=== PATIENT | male | born 1950 | race Caucasian/White ===

== ENCOUNTER 2019-11-25 16:00 | Outpatient (RCR) | payer MEDICARE, OTHER, SELFPAY ==
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
== END 2019-11-25 16:05 | disposition home or self-care (01) ==
LOC: PT 16:00
PROVIDERS: Visit Provider Family Medicine
DX: R42 Dizziness and giddiness (principal)
CPT/HCPCS: 97110; 97163; 97535

== ENCOUNTER → 2020-02-23 10:51 | Outpatient (CLI) | payer MEDICARE, OTHER, SELFPAY ==
[2020-02-23 11:07] LABS: Basophils % 0.3 % (0.1-2.0); Eosinophils # 0.2 K/mm3 (0.0-0.4); Eosinophils % 2.3 % (0.1-12.0); Hemoglobin 14.9 g/dL (14.1-18.0); Lymphocytes # 1.8 K/mm3 (0.7-4.5); Lymphocytes % 25.5 % (10-50); Mean Corpuscular HGB Conc 34.6 g/dL (31.8-35.4); Mean Corpuscular Hemoglobin 33.2 pg (27.0-31.2); Mean Platelet Volume 9.2 fl (7.4-10.4); Monocytes # 0.4 K/mm3 (0.1-1.0); Monocytes % 5.7 % (1.7-9.3); Neutrophils # 4.6 K/mm3 (1.8-7.8); Neutrophils % 66.2 % (37.0-80.0); Platelet Count 187 K/mm3 (142-424); Red Blood Count 4.48 M/mm3 (4.60-6.20); Red Cell Distribution Width 14.5 % (11.5-17.5)
--- NOTE | 2020-02-23 11:13 | ECG_ITS ---
APPROVED REPORT Exam: Resting ECG HR:53 bpm ECG Measurements Heart Rate 53 AXES IA 168 P 53 QRSd 86 QRS 59 QT 450 T 48 QTc 422 <Conclusion> Sinus bradycardia with marked sinus arrhythmia Nonspecific ST abnormality Abnormal ECG Electronically signed by : Lewis Horvath, 02/25/2020 06:38:05
[2020-02-23 11:26] LABS: Alanine Aminotransferase 33 U/L (12-78); Albumin/Globulin Ratio 1.3 (1.1-1.8); Alkaline Phosphatase 131 U/L (38-126); Anion Gap 12.4 mEq/L (5-15); Aspartate Amino Transferase 41 U/L (17-59); Bilirubin,Total 0.7 mg/dl (0.2-1.3); Blood Urea Nitrogen 24 mg/dl (9-20); Calcium 9.3 mg/dl (8.4-10.2); Carbon Dioxide 30 mmol/L (22.0-30.0); Chloride 106 mmol/L (98-107); Creatine Kinase 101 U/L (55-170); Estimated Glomerular Filt Rate 51 ml/min (>60); GFR (African American) 61 ML/MIN (>60); Glucose 120 mg/dl (74-100); Potassium 4.4 mmoL/L (3.5-5.1); Sodium 144 mmol/L (136-145)
[2020-02-23 11:40] LABS: NT Pro Brain Natriuretic Pep. 709 pg/mL (0-125)
[2020-02-23 11:41] LABS: Troponin I < 0.01 ng/ml (0.00-0.034)
[2020-02-23 11:58] LABS: Thyroid Stimulating Hormone 1.43 uIU/mL (0.465-4.68)
[2020-02-23 12:16] LABS: Vitamin B12 389 pg/mL (239-931)
== END ==
PROVIDERS: Visit Provider Physician Assistant
DX: R07.9 Chest pain, unspecified (principal); R42 Dizziness and giddiness; R53.83 Other fatigue; R06.02 Shortness of breath
CPT/HCPCS: 36415; 80053; 82550; 82553; 82607; 83880; 84443; 84484; 85025; 93005

== ENCOUNTER → 2020-02-29 12:06 | Outpatient (CLI) | payer MEDICARE, OTHER, SELFPAY ==
--- NOTE | 2020-02-29 | CA_ITS ---
APPROVED REPORT Exam: Pharmacologic Technologist: Monica Bee, Ht: 5 ft 9 in Wt: 260 lbs BSA: 2.31 m2 HR: 59 bpm BP: 138/79 mmHg Indications: SOB, Chest Pain, Blood pressure Medical History Medications: Omeprazole,,,,, Losartan,,,,, Montelukast,,,,, Meclazine,,,,, FluTICASONE,,,,, MeLATONIN,,,,, Vitamin,,,,, MetaPROLOL,,,,, AZelastin,,,,, AtrovASTATIN,,,,, Asprin,,,,, ArNuity,,,,, Stress Test Details Test: LEXISCAN HR Resting HR: 55 bpm Max Heart Rate (APMHR): 153 bpm Max HR Achieved: 85 bpm Target HR (85% APMHR): 130 bpm % of APMHR: 55 Recovery HR: 74 bpm BP Resting BP: 138/79 mmHg Max BP: 162/75 mmHg Recovery BP: 148.0/83.0 mmHg ECG Clinical Exercise duration: 04:00 min Highest Stage Achieved: Exercise capacity: 1.0 METs Stress ECG Conclusion Resting EKG: Sinus bradycardia, PVC's, NS ST abns Symptoms: Mild SOA, stomach cramps, RENEE, malaise, No CP Arrhythmias/Ectopy: Moderately frequent PVC's ST-T Changes: No significant changes Conclusions: Unremarkale Lexiscan stress. Myoview images reported separately. Test Summary REST . . . . . . . Sitting REST 04:23 . . 55 . 138/ 79 . . Stage 1 01:00 . . 68 . . . . Stage 2 01:00 . . 84 . . . . Stage 3 01:00 . . 78 . 155/ 71 . . Stage 4 01:00 . . 75 . 162/ 75 . Stop exercise at 04:00 RECOVERY 01:00 . . 76 . 141/ 75 . . RECOVERY 02:00 . . 70 . 135/ 68 . . RECOVERY 03:00 . . 73 . 148/ 83 . . RECOVERY 03:38 . . 73 . 148/ 83 . . Electronically signed by : Alexander Light, 02/29/2020 18:35:18
--- NOTE | 2020-02-29 12:12 | NM_ITS ---
APPROVED REPORT Exam: Nuclear Stress Test Indication: SOB, CAD, CABG, HTN, Former tobacco use, Family history, Fatigue, Dizziness Patient Location: Outpatient Stress Tech: Anna Tejeda [place] Tech:Manju Real, ARRT, RT (R)(N) Ht: 5 ft 9 in Wt: 260 lbs HR: 59 bpm BP: 138/79 mmHg BSA: 2.31 m2 BMI: 38.3 History: SOB, CAD, CABG, HTN, Former tobacco use, Family history, Fatigue, Dizziness Procedure: Patient received a 0.4 mg of intravenous Lexiscan, resting heart rate 59 bpm, resting blood pressure 138/79 mmHg, with Lexiscan maximum heart rate achived was 84 bpm which is Less than 85 % of the maximum predicted heart rate and blood pressure was 155/71 mmHg. With Lexiscan, patient denied any complaint of chest pain. Electrocardiogram Resting electrocardiogram showed sinus rhythm, with Lexiscan there is less than 1.[address] segment depression noted from the baseline EKG, occasional premature ventricular complexes seen. The EKG portion of the Lexiscan Myoview is nondiagnostic. Cardiac Stress and Resting SPECT Images: Cardiac Stress and Resting SPECT images were obtained using technetium 99m Myoview 31.0 mCi stress and 9.78 mCi at rest. Gated SPECT for analysis of segmental wall motion and calculation of the ejection fraction also done. Cardiac stress and resting SPECT images show a mild fixed defect of the apex with normal contractility gated SPECT is likely secondary to soft tissue attenuation, no reversible ischemia seen. Computer derived ejection fraction is 53% with no regional wall motion abnormality, right ventricle is normal size and contractility. Conclusion: 1. The EKG portion of the Lexiscan Myoview is nondiagnostic. 2. No scintigraphic evidence of reversible ischemia seen, computer derived ejection fraction 53% with no regional wall motion abnormality, right ventricle is normal size and contractility. 3. Likely normal Lexiscan Myoview study. Electronically signed by : Alexander Light, 02/29/2020 18:37:57
--- NOTE | 2020-02-29 12:41 | HMH.ITSHM ---
Current Home Medications as stated by this patient Matthew Quesada or wholesale representative. []ARNUITY FLUTICASONE AZELASTINE MUCINEX OMEPRAZOLE ASA LOSARTAN FLUID PILL CENTRUM SILVER MELATONIN MONTELUKAST ATORVASTATIN METOPROLOL MECLIZINE
== END ==
PROVIDERS: PCP Family Medicine; Visit Provider Physician Assistant
DX: R07.9 Chest pain, unspecified (principal)
CPT/HCPCS: 78452; 93017; A9502; J2785

== ENCOUNTER 2020-03-18 13:47 | Emergency (ER) | payer MEDICARE, OTHER, SELFPAY ==
[2020-03-18 14:01] VITALS: BP 153/89; PULSE 56; RESP 17; TEMP 36.2; O2SAT 95; BMI 36.9
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
--- NOTE | 2020-03-18 14:06 | XR_ITS ---
PROCEDURE: XR CHEST AP CLINICAL HISTORY: fall Posttraumatic pain COMPARISON: CR CXR CHEST(2 VIEWS-NOT PORTABLE) from 07/13/2012 FINDINGS: Interval median sternotomy/CABG with mild cardiomegaly. The lungs are clear without infiltrates, suspicious nodules, or pleural effusions. No acute bony abnormalities. IMPRESSION: No acute findings. Dictated by: Amol Price MD 03/18/2020 18:12 Amol Price MD in [facility] 03/18/2020 18:12
--- NOTE | 2020-03-18 14:06 | XR_ITS ---
PROCEDURE: XR PELVIS 1-2V CLINICAL INDICATION: fall Posttraumatic pain COMPARISON: No exams were available for comparison TECHNIQUE: XR Pelvis AP View FINDINGS: No fracture or dislocation is evident. Mild osteoarthritic change of the hips No lytic or blastic change. IMPRESSION: No acute findings. Dictated by: Amol Price MD 03/18/2020 17:40 Amol Price MD in [facility] 03/18/2020 17:40
--- NOTE | 2020-03-18 14:06 | CT_ITS ---
PROCEDURE: CT HEAD/BRAIN WO CON CLINICAL INDICATION: fall Head injury with headache/pain, contusion, abrasion or hematoma COMPARISON: No exams were available for comparison TECHNIQUE: Axial images obtained. All CT scans at the facility use one or more dose reduction, viz: automated exposure control, ma/kV adjustment per patient size (including targeted exams where dose is matched to indication, i.e. head), or iterative reconstruction technique. FINDINGS: No midline shift, mass effect, intracranial hemorrhage, hydrocephalus, or extra-axial fluid collection is evident. The calvarium has an unremarkable appearance. No mastoid effusion. No sinus air-fluid level. IMPRESSION: No acute intracranial finding Dictated by: Amol Price MD 03/18/2020 20:12 Amol Price MD in [facility] 03/18/2020 20:12
--- NOTE | 2020-03-18 14:06 | CT_ITS ---
PROCEDURE: CT CERVICAL SPINE WO CON CLINICAL INDICATION: fall Neck injury with pain, contusion/abrasion or hematoma, cervical sprain/strain the COMPARISON: No exams were available for comparison TECHNIQUE: Axial images obtained with sagittal and coronal reformats. All CT scans at the facility use one or more dose reduction, viz: automated exposure control, ma/kV adjustment per patient size (including targeted exams where dose is matched to indication, i.e. head), or iterative reconstruction technique. Axial spiral CT scanning performed of the cervical spine beginning at the base of the skull and continuing to the upper T-spine. 3-D multiplanar reconstruction with 3-D manipulation of volumetric data set in image rendering was completed by the radiologist and/or technologist with the supervision of the radiologist on independent workstation. FINDINGS: Normal alignment. No fracture or dislocation. There is mild degenerative disc disease C2-C3. C3-C4: Degenerative disc disease with small posterior disc osteophyte complex. C4-C5: Mild degenerative disc disease. C5-C6: Degenerate disc disease with endplate hypertrophic change with canal stenosis and left-sided foraminal narrowing. C6-C7: Degenerate disc disease with borderline canal stenosis. Mild bilateral foraminal narrowing slightly greater on the left. IMPRESSION: No acute fracture. Multilevel cervical spondylosis with canal stenosis Dictated by: Amol Price MD 03/18/2020 20:25 Amol Price MD in [facility] 03/18/2020 20:25
--- NOTE | 2020-03-18 14:07 | XR_ITS ---
PROCEDURE: XR SHOULDER LT MIN 2V CLINICAL INDICATION: fall Shoulder pain COMPARISON: No exams were available for comparison FINDINGS: Degenerative changes AC joint and glenohumeral joint. No acute fracture or dislocation. IMPRESSION: No acute finding Dictated by: Amol Price MD 03/18/2020 18:34 Amol Price MD in [facility] 03/18/2020 18:34
--- NOTE | 2020-03-18 14:07 | XR_ITS ---
PROCEDURE: XR KNEE LT 3V CLINICAL INDICATION: fall Posttraumatic pain COMPARISON: No exams were available for comparison FINDINGS: Surgical clips are present along the medial aspect of the knee. The joint spaces are well-preserved. No significant degenerative/arthritic changes. No erosive changes evident. Other findings:None. IMPRESSION: No acute findings. Dictated by: Amol Price MD 03/18/2020 18:35 Amol Price MD in [facility] 03/18/2020 18:35
--- NOTE | 2020-03-18 14:07 | XR_ITS ---
PROCEDURE: XR HAND RT MIN 3V CLINICAL INDICATION: fall Pain COMPARISON: CR HANDR3 HAND-RT 3 VIEWS from 02/15/2016 CR HANDL3 HAND-LT-3 VIEWS from 02/15/2016 FINDINGS: No fracture or dislocation. No lytic or blastic change. There is normal mineralization. The joint spaces are well-preserved. No significant degenerative/arthritic changes. No erosive changes evident. Other findings:None. IMPRESSION: No acute findings. Dictated by: Amol Price MD 03/18/2020 18:13 Amol Price MD in [facility] 03/18/2020 18:13
--- NOTE | 2020-03-18 14:07 | XR_ITS ---
PROCEDURE: XR KNEE RT 3V CLINICAL INDICATION: fall Posttraumatic pain COMPARISON: No exams were available for comparison FINDINGS: No acute fracture or dislocation. There is a small sclerotic focus in the the lateral femoral condyle region suggesting a bone island. The joint spaces are well-preserved. No significant degenerative/arthritic changes. No erosive changes evident. Other findings:None. IMPRESSION: No acute findings. Dictated by: Amol Price MD 03/18/2020 18:03 Amol Price MD in [facility] 03/18/2020 18:03
--- NOTE | 2020-03-18 14:07 | XR_ITS ---
PROCEDURE: XR HAND LT MIN 3V CLINICAL INDICATION: fall Posttraumatic pain COMPARISON: CR HANDR3 HAND-RT 3 VIEWS from 02/15/2016 CR HANDL3 HAND-LT-3 VIEWS from 02/15/2016 FINDINGS: No fracture or dislocation. There is ring artifact overlying the proximal phalanx of the 4th finger. There is an a small concave defect involving the proximal and radial aspect of the proximal phalanx of the 2nd finger unchanged. Other findings:None. IMPRESSION: No acute findings. Dictated by: Amol Price MD 03/18/2020 18:07 Amol Price MD in [facility] 03/18/2020 18:07
--- NOTE | 2020-03-18 14:07 | XR_ITS ---
PROCEDURE: XR SHOULDER RT MIN 2V CLINICAL INDICATION: fall Posttraumatic pain COMPARISON: No exams were available for comparison FINDINGS: No fracture or dislocation. No lytic or blastic change. There is normal mineralization. Mild osteoarthritic change of the glenohumeral joint Other findings:Scattered small densities in the humeral head which may be due to bone islands. IMPRESSION: No acute findings. Dictated by: Amol Price MD 03/18/2020 17:39 Amol Price MD in [facility] 03/18/2020 17:39
[2020-03-18 16:23] VITALS: BP 133/6; PULSE 86; RESP 17; TEMP 36.9; O2SAT 98
== END 2020-03-18 16:30 | disposition home or self-care (01) ==
PROVIDERS: Emergency Provider Emergency Medicine; PCP Family Medicine
DX: S46.912A Strain of unspecified muscle, fascia and tendon at shoulder and upper arm level, left arm, initial encounter (principal); S61.217A Laceration without foreign body of left little finger without damage to nail, initial encounter; V86.99XA Unspecified occupant of other special all-terrain or other off-road motor vehicle injured in nontraffic accident, initial encounter; Y92.89 Other specified places as the place of occurrence of the external cause; Z23 Encounter for immunization; S80.02XA Contusion of left knee, initial encounter; S80.01XA Contusion of right knee, initial encounter; S80.12XA Contusion of left lower leg, initial encounter; S80.11XA Contusion of right lower leg, initial encounter
CPT/HCPCS: 12001; 70450; 71045; 72125; 72170; 73030; 73130; 73562; 90471; 90715; 99282

== ENCOUNTER → 2020-11-06 09:59 | Outpatient (CLI) | payer MEDICARE, OTHER, SELFPAY ==
--- NOTE | 2020-11-06 10:05 | XR_ITS ---
PROCEDURE: XR FOOT RT MIN 3V CLINICAL INDICATION: PLANTAR FASCITIS OF RT FOOT COMPARISON: CR FTR3 FOOT-RT-3 VIEWS from 02/15/2016 FINDINGS: No fracture or dislocation. No lytic or blastic change. There is normal mineralization. There are mild osteoarthritic changes at the 1st metatarsophalangeal joint. Tiny calcaneal spur noted unchanged. Small area of exostosis also noted involving the talus anteriorly and distally. Other findings:None. 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
== END ==
PROVIDERS: PCP Family Medicine; Visit Provider Family Medicine
DX: M72.2 Plantar fascial fibromatosis (principal)
CPT/HCPCS: 73630

== ENCOUNTER 2021-05-22 13:00 | Outpatient (RCR) | payer MEDICARE, OTHER, SELFPAY ==
--- NOTE | 2021-03-27 14:22 | HMH.OTOPEV ---
OT Inpatient Evaluation Rehab OT Outpatient Eval Start: 03/27/21 13:34 Freq: Status: Active Protocol: Document 03/27/21 13:34 NARAKARLY (Rec: 03/27/21 14:21 NARAKARLY [id number]) Electronically Signed By Fior Perez OT 03/27/21 13:34 Outpatient Therapy Subjective History Subjective History 70 year old male referred to skilled OT services for left shoulder pain. Patient injured L shoulder after falling over his family member dog and landing directly on his left elbow and shoulder. This incident happened over a month ago with no relief. No imaging done at this time. Patient verbalize having difficulty completing ADLs such as donning belt and reaching into back pocket and above shoulder. 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 Symptom Type Ache,Dull Symptoms Relieved By Nothing Symptoms Aggravated By Physical Activity Prior Functional Limitations None Current Functional Limitations Reaching,Lifting,Sleeping, Recreation Activity Symptom Description Intermittent Level of pain today (0-10) 0 Pain scale - at its best (0-10) 0 Pain scale - at its worst (0-10) 7 Shoulder/Elbow Eval Shoulder Objective Measurements Shoulder ROM Left Shoulder Abduction Active Range of 85 Motion (degrees) Shoulder Flexion Active Range of Motion 110 (degrees) Query Text: Shoulder External Rotation Active Range 70 of Motion (degrees) Shoulder Internal Rotation Passive Range 60 of Motion (degrees) pain with active ROM shoulder exam left standard Shoulder MMT Shoulder Abduction Strength Grade 3- Fair- Shoulder Extension Strength Grade 3- Fair- Shoulder Flexion Strength Grade 3- Fair- Shoulder Horizontal Abduction Strength 3- Fair- Grade Shoulder Horizontal Adduction Strength 3- Fair- Grade Shoulder External Rotation Strength 3- Fair- Grade Shoulder Special Tests impingement sign present shoulder exam left standard Shoulder Drop Arm Test Negative Left Shoulder Empty Can (Supraspinatus) Test Positive Left Shoulder Stuart-Wyatt Impingement Positive Left Test Shoulder Neer Impingement Test Positive Left Elbow Objective Measurements
--- NOTE | 2021-04-24 13:26 | HMH.RHREAS ---
Rehab Reassessment Rehab OP Re-assessment Start: 04/24/21 13:17 Freq: Status: Active Protocol: Document 04/24/21 13:17 CAS (Rec: 04/24/21 13:26 CAS [id number]) Electronically Signed By Fior Perez OT 04/24/21 13:17 Rehab Re-assessment Subjective Subjective My shoulder and elbow feel alot better. Patient had a f/ u with PCP on 04/23/21 with good outcome. Patient verbalize to PCP that he is pleased with the progress that has been made during OT skilled services to address L shoulder and L elbow pain, AROM and strengthening. F/u with PCP in 3 months. Objective Objective Notes Since SOC, Patient has participated well in skilled OP OT services to address L UE AROM, strengthening and decrease pain in the shoulder and elbow. Patient has participated well 2x/wk for the past 4 weeks of CPT codes of thera exer, thera act, manual therapy and modalities. Assessment Progress Assessment Progressing as Expected Assessment Notes Evaluation on 03/27/21 AROM of L UE shoulder flex: 110 abd:85 er: 70 ir: 60 3-/5 strength of shoulder throughout 7/10 pain at worst Re-assessment on 04/24/21 AROM of L UE shoulder flex: 150 abd:150 er: 80 ir: 70 3+/5 to 4-/5 strength of shoulder throughout 7/10 pain at worst Patient goals met all goals except LTG ER. All goals upgraded. Goals Not Met LTG ER Revised Goals AROM of L UE shoulder flex: 160 abd:160 er: 90 ir: 70 4-/5 strength of shoulder throughou
== END 2021-06-26 09:34 | disposition home or self-care (01) ==
LOC: OT 13:00
PROVIDERS: PCP Family Medicine; Visit Provider Family Medicine
DX: M25.512 Pain in left shoulder (principal)
CPT/HCPCS: 97014; 97035; 97110; 97140; 97164; 97165; 97530; G0283

== ENCOUNTER → 2021-09-24 11:12 | Outpatient (CLI) | payer MEDICARE, OTHER, SELFPAY ==
[2021-09-24 11:51] LABS: Adenovirus,PCR Not Detected (NotDetected); Bordetella Pertussis Not Detected (NotDetected); Chlamydophila Pneumoniae, PCR Not Detected (NotDetected); Coronavirus 19, PCR Not Detected (NotDetected); Coronavirus 229E Not Detected (NotDetected); Coronavirus NL63 Not Detected (NotDetected); Coronavirus OC43 Not Detected (NotDetected); Coronovirus HKU1,PCR Not Detected (NotDetected); Human Metapneumovirus Not Detected (NotDetected); Influenza A, PCR Not Detected (NotDetected); Influenza AH1, 2009 Not Detected (NotDetected); Influenza AH1, PCR Not Detected (NotDetected); Influenza AH3,PCR Not Detected (NotDetected); Influenza B, PCR Not Detected (NotDetected); Mycoplasma Pneumoniae, PCR Not Detected (NotDetected); Parainfluenza 1, PCR Not Detected (NotDetected); Parainfluenza 2, PCR Not Detected (NotDetected); Parainfluenza 3, PCR Not Detected (NotDetected); Parainfluenza 4, PCR Not Detected (NotDetected); Respiratory Syncytial Virus Not Detected (NotDetected); Rhinovirus/Enterovirus Not Detected (NotDetected)
[2021-09-24 11:57] LABS: Basophils # 0.1 K/mm3 (0-0.2); Basophils % 0.6 % (0.1-2.0); Eosinophils # 0.1 K/mm3 (0.0-0.4); Eosinophils % 1.6 % (0.1-12.0); Hematocrit 45.5 % (42.0-52.0); Hemoglobin 15.2 g/dL (14.1-18.0); Lymphocytes # 1.7 K/mm3 (0.7-4.5); Lymphocytes % 19.7 % (10-50); Mean Corpuscular HGB Conc 33.5 g/dL (31.8-35.4); Mean Corpuscular Hemoglobin 31.8 pg (27.0-31.2); Mean Platelet Volume 9.1 fl (7.4-10.4); Monocytes # 0.5 K/mm3 (0.1-1.0); Monocytes % 5.6 % (1.7-9.3); Neutrophils # 6.3 K/mm3 (1.8-7.8); Neutrophils % 72.5 % (37.0-80.0); Platelet Count 230 K/mm3 (142-424); Red Blood Count 4.78 M/mm3 (4.60-6.20); Red Cell Distribution Width 14.4 % (11.5-17.5); White Blood Count 8.6 K/mm3 (4.8-10.8)
== END ==
PROVIDERS: PCP Family Medicine; Visit Provider Family Medicine
DX: Z20.822 Contact with and (suspected) exposure to COVID-19 (principal)
CPT/HCPCS: 36415; 85025; 87581; 87632; 87798; C9803; U0003; U0005

== ENCOUNTER 2021-12-07 04:10 | Emergency (ER) | payer MEDICARE, OTHER, SELFPAY ==
[2021-12-07] VITALS (13 sets, daily range): BP systolic 124–152; BP diastolic 60–75; PULSE 58–76; RESP 16–20; TEMP 36.7–36.8; O2SAT 96–99; BMI 35.9
--- NOTE | 2021-12-07 04:31 | CT_ITS ---
FINAL REPORT TECHNIQUE: After the administration of oral and intravenous contrast, axial images were obtained through the abdomen and pelvis by computed tomography. The study was performed with techniques to keep radiation dose as low as reasonably achievable, (ALARA). Individual dose reduction techniques using automated exposure control or adjustment of mA and/or kV according to the patient's size were employed. CLINICAL HISTORY: UPPER ABDOMINAL PAIN FINDINGS: Abdomen: There is mild bibasilar scarring. The liver is normal in size and attenuation. There is no CT evidence of gallstones. There is gallbladder wall thickening with adjacent fat stranding, cholecystitis is not excluded. There is no biliary ductal dilatation. The spleen is unremarkable. The adrenals are normal. The pancreas is unremarkable. There are bilateral renal cysts. There is a nonobstructing right renal stone measuring up to 6 mm. 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 Note is made of moderate vascular calcification. The aorta is normal in caliber. There is no free fluid or adenopathy. Pelvis: The appendix is not identified. There is sigmoid diverticulosis without evidence of diverticulitis. A small left inguinal hernia containing fat is noted. The urinary bladder is unremarkable. There is no free fluid or adenopathy. There are bilateral L5 pars defects. IMPRESSION: Possible cholecystitis. Consider right upper quadrant ultrasound and/or [facility] hepatobiliary scan for further evaluation. Right renal stone. Reviewed, Interpreted and Dictated by Lit Collins III, MD Transcribed by Jen Boothe Authenticated and [facility]
--- NOTE | 2021-12-07 04:31 | XR_ITS ---
FINAL REPORT CLINICAL HISTORY: UPPER ABDOMINAL PAIN FINDINGS: Cardiomegaly is noted. Postoperative changes are seen from median sternotomy. There is mild bibasilar opacities favoring atelectasis or scarring. There is no pneumothorax. The bony thorax is intact. IMPRESSION: Mild bibasilar opacities, favor atelectasis or scarring. Reviewed, Interpreted and Dictated by Lit Collins III, MD Transcribed by Haleigh Ferrari Authenticated and [facility]
--- NOTE | 2021-12-07 04:37 | ECG_ITS ---
APPROVED REPORT Exam: Resting ECG HR:65 bpm ECG Measurements Heart Rate 65 AXES CO 158 P 50 QRSd 93 QRS 78 QT 407 T 67 QTc 418 Conclusion SINUS RHYTHM MINIMAL ST DEPRESSION [0.025+ mV ST DEPRESSION] BORDERLINE ECG UNCONFIRMED REPORT Electronically signed by : Lewis Horvath MD 12/07/2021 15:35:43
[2021-12-07 04:39] LABS: Microscopic, Urine URINE MICROSCOPIC (MICROSCOPIC)
[2021-12-07 04:41] LABS: Appearance,Urine CLEAR (Clear); Bilirubin,Urine Negative (Negative); Blood, Urine Negative (Negative); Color,Urine YELLOW (Yellow); Glucose,Urine (UA) TRACE (Negative); Ketones,Urine Negative (Negative); Leukocyte Esterase,Urine Negative (Negative); Nitrate,Urine Negative (Negative); PH,Urine 5.5 (5.0-8.5); Protein,Urine Negative (Negative); Specific Gravity, Urine >= 1.030 (1.005-1.030); Urobilinogen,Urine 0.2 EU/dl (0.2)
--- NOTE | 2021-12-07 04:51 | HMH.EDNVD ---
ED Disposition Clinical Impression: Gallbladder disorder Abdominal pain Qualifiers: Abdominal location: generalized Qualified Code(s): R10.84 - Generalized abdominal pain Disposition: Home, Self-Care Condition on Discharge: Good Instructions: DI for Acute Abdominal Pain Additional Instructions: call pcp for follow up and more testing Referrals: Sanket Strange MD [Primary Care Provider] - - Critical Care Critical Care Time: No Attestation: On 12/07/21, the high probability of a clinically significant, sudden or life threatening deterioration of the following system(s) required my full and direct attention, intervention and personal management. The time I documented below is in addition to time spent performing reported procedures but includes the following listed in this critical care notation. Medical Decision Making - Medical Records Medical records reviewed: Yes: I reviewed the patient's medical records. - Travis Inquiry Pt receiving controlled substance: No Vital Signs: 12/07/21 04:12 12/07/21 05:00 12/07/21 06:00 Temperature 98.1 F Temperature Source Oral Pulse Rate 64 74 Pulse Rate [Left Radial] 72 Respiratory Rate 16 Blood Pressure 152/75 H 144/61 H Blood Pressure [Right Arm] 139/61 Blood Pressure Mean Blood Pressure Mean [Right Arm] 87 Blood Pressure Source [Right Arm] Automatic Cuff Blood Pressure Position [Right Arm] Sitting 02 Sat by Pulse Oximetry 98 99 96 Oxygen Delivery Method Room Air Room Air Room Air 12/07/21 06:30 12/07/21 06:49 12/07/21 07:00 Temperature Temperature Source Pulse Rate 71 68 76 Pulse Rate [Left Radial] Respiratory Rate 18 18 20 Blood Pressure 141/65 H 149/65 H 144/71 H Blood Pressure [Right Arm] Blood Pressure Mean 80 78 85 Blood Pressure Mean [Right Arm] Blood Pressure Source [Right Arm] Blood Pressure Position [Right Arm] 02 Sat by Pulse Oximetry 96 97 97 Oxygen Delivery Method 12/07/21 07:30 12/07/21 08:00 12/07/21 08:30 Temperature Temperature Source Pulse Rate 76 62 62 Pulse Rate [Left Radial] Respiratory Rate 20 16 16 Blood Pressure 143/69 H 143/67 H 132/63 Blood Pressure [Right Arm] Blood Pressure Mean 93 84 85 Blood Pressure Mean [Right Arm] Blood Pressure Source [Right Arm] Blood Pressure Position [Right Arm] 02 Sat by Pulse Oximetry 96 96 96 Oxygen Delivery Method Room Air Room Air 12/07/21 09:00 12/07/21 09:30 12/07/21 10:00 Temperature Temperature Source Pulse Rate 60 60 58 L Pulse Rate [Left Radial] Respiratory Rate 18 20 20 Blood Pressure 134/69 125/62 124/63 Blood Pressure [Right Arm] Blood Pressure Mean 90 83 75 Blood Pressure Mean [Right Arm] Blood Pressure Source [Right Arm] Blood Pressure Position [Right Arm] 02 Sat by Pulse Oximetry 98 97 97 Oxygen Delivery Method Room Air - Lab Data Lab results reviewed: Yes: I reviewed the patient's lab results. Lab Results 12/07/21 04:19: Urine Color Yellow, Urine Appearance Clear, Urine pH 5.5, Ur Specific Virgil >= 1.030, Urine Protein Negative, Urine Glucose (UA) Trace, Urine Ketones Negative, Urine Blood Negative, Urine Nitrate Negative, Urine Bilirubin Negative, Urine Urobilinogen 0.2, Ur Leukocyte Esterase Negative, Ur Squamous Epith Cells Occasional, Urine Bacteria Trace, Urine Mucus Trace 12/07/21 04:55: WBC 11.4 H, RBC 4.63, Hgb 15.1, Hct 43.8, MCV 94.6 H, MCH 32.6 H, MCHC 34.5, RDW 15.0, Plt Count 199, MPV 9.4, Neut % (Auto) 85.1 H, Lymph % (Auto) 9.0 L, Centre % (Auto) 4.3, Eos % (Auto) 0.6, Baso % (Auto) 0.9, Neut # (Auto) 9.7 H, Lymph # (Auto) 1.0, Centre # (Auto) 0.5, Eos # (Auto) 0.1, Baso # (Auto) 0.1, Total Counted 100, Neutrophils % (Manual) 87 H, Lymphocytes % (Manual) 8 L, Monocytes % (Manual) 4, Eosinophils % (Manual) 1, Platelet Estimate Normal, RBC Morphology Normal, ESR 20 12/07/21 04:55: Sodium 139, Potassium 4.1, Chloride 105, Carbon Dioxide 26, Anion Gap 12.1, BUN 23 H,
[2021-12-07 04:52] LABS: Bacteria,Urine Trace /lpf; Mucus,Urine Trace /lpf; Squamous Epithelial Cell,Urine Occasional #/hpf (0-5)
[2021-12-07 05:11] LABS: Basophils # 0.1 K/mm3 (0-0.2); Basophils % 0.9 % (0.1-2.0); Eosinophils # 0.1 K/mm3 (0.0-0.4); Eosinophils % 0.6 % (0.1-12.0); Hematocrit 43.8 % (42.0-52.0); Hemoglobin 15.1 g/dL (14.1-18.0); Mean Corpuscular HGB Conc 34.5 g/dL (31.8-35.4); Mean Corpuscular Hemoglobin 32.6 pg (27.0-31.2); Mean Corpuscular Volume 94.6 fl (80-94); Mean Platelet Volume 9.4 fl (7.4-10.4); Monocytes # 0.5 K/mm3 (0.1-1.0); Monocytes % 4.3 % (1.7-9.3); Neutrophils # 9.7 K/mm3 (1.8-7.8); Neutrophils % 85.1 % (37.0-80.0); Platelet Count 199 K/mm3 (142-424); Red Blood Count 4.63 M/mm3 (4.60-6.20); White Blood Count 11.4 K/mm3 (4.8-10.8)
[2021-12-07 05:14] LABS: Alanine Aminotransferase 33 U/L (12-78); Albumin/Globulin Ratio 1.3 (1.1-1.8); Alkaline Phosphatase 147 U/L (38-126); Amylase 87 U/L (30-110); Aspartate Amino Transferase 34 U/L (17-59); Bilirubin,Total 0.5 mg/dl (0.2-1.3); Blood Urea Nitrogen 23 mg/dl (9-20); Calcium 9.1 mg/dl (8.4-10.2); Carbon Dioxide 26 mmol/L (22.0-30.0); Creatinine Clearance Estimated 86 mL/min (50-200); Estimated Glomerular Filt Rate 55 ml/min (>60); GFR (African American) 66 ML/MIN (>60); Globulin 3.1 g/dL (1.3-3.2); Glucose 220 mg/dl (74-100); Lipase 77 U/L (23-300); Potassium 4.1 mmoL/L (3.5-5.1); Sodium 139 mmol/L (136-145); Total Protein,Serum 7.1 g/dl (6.3-8.2)
[2021-12-07 05:15] LABS: Lactic Acid 1.9 mmol/L (0.7-2.1)
[2021-12-07 05:16] LABS: MANUAL DIFFERENTIAL MANUAL DIFFERENTIAL (MANUAL DIFF)
[2021-12-07 05:20] LABS: Anion Gap 12.1 mEq/L (5-15); C-Reactive Protein 34.2 mg/L (0-4); Chloride 105 mmol/L (98-107)
[2021-12-07 05:29] LABS: Troponin I < 0.01 ng/ml (0.00-0.034)
[2021-12-07 05:33] LABS: Procalcitonin 0.078 ng/mL (0.0-2.0)
[2021-12-07 05:40] LABS: Erythrocyte Sedimentation Rate 20 mm/hr (0-20)
[2021-12-07 06:00] LABS: Eosinophils % 1 % (0-3); Lymphocytes % 8 % (10-50); Monocytes % 4 % (2-9); Neutrophils % 87 % (42-76); Total Cells Counted 100
[2021-12-07 06:01] LABS: Platelet Estimate Normal; RBC Morphology Normal
--- NOTE | 2021-12-07 06:27 | PC.NURSE ---
Rechecked pt condition. No new needs.
--- NOTE | 2021-12-07 06:43 | PC.NURSE ---
PT ASSISTED TO RESTROOM PER OLIVE RN. PT TOLERATED WELL. PT UPDATED. WCM.
--- NOTE | 2021-12-07 07:38 | PC.NURSE ---
checked on pt at this time, pt states no needs at this time. Will continue to monitor
--- NOTE | 2021-12-07 07:40 | PC.NURSE ---
contacted radiology to check on status of CT read, states they will check with [facility] and let us know
--- NOTE | 2021-12-07 08:05 | PC.NURSE ---
per denny in radilology spoke with [facility], states they say they area experiencing longer than normal delays, states they told her they couldn't bump pt up in line without a medical reason.
--- NOTE | 2021-12-07 08:15 | PC.NURSE ---
updated pt and family member we are still waiting on Ct results, we have had radiology contact [facility] to ask them about results
[2021-12-07 08:40] LABS: Troponin I < 0.01 ng/ml (0.00-0.034)
--- NOTE | 2021-12-07 09:08 | PC.NURSE ---
Updated and on POC. No new needs at this time. Pt resting comfortably in bed.
--- NOTE | 2021-12-07 09:09 | PC.NURSE ---
contacted radiology again to check about CT results, states they checked status again, states Ct still has not been read. States they are going to check with their production assembly supervisor to see if they can resend pt scans to other radiologist([id number]) to see if they can get them read quicker
--- NOTE | 2021-12-07 09:13 | PC.NURSE ---
radiology directed to per CNO to send pt CT to [facility] to have CT read r/t delay in reading from [facility]
--- NOTE | 2021-12-07 10:07 | US_ITS ---
FINAL REPORT CLINICAL HISTORY: abd pain FINDINGS: RIGHT UPPER QUADRANT ULTRASOUND Sonographic images of the right upper quadrant were obtained. The pancreas is partially obscured.The liver has an unremarkable appearance. Echogenic foci are seen in the gallbladder without definite shadowing, may represent polyps or tumefactive sludge. The common duct normal measuring 3 mm. There are 2 right renal cysts, largest measures 3.6 cm. IMPRESSION: Gallbladder polyps versus tumefactive sludge. Right renal cysts. Reviewed, Interpreted and Dictated by Lit Collins III, MD Transcribed by Jen Boothe Authenticated and [facility]
--- NOTE | 2021-12-07 10:10 | PC.NURSE ---
notified rad of gall bladder order
--- NOTE | 2021-12-07 10:10 | PC.NURSE ---
pt ambulated to restroom independently at this time.
--- NOTE | 2021-12-07 10:50 | PC.NURSE ---
per nutrition tech pt has sludge in gallbladder, no stones. Reported to results to Dr. Martinez
--- NOTE | 2021-12-07 10:58 | PC.NURSE ---
pt reports feeling better, states pain is better. Updated pt on POC
== END 2021-12-07 11:22 | disposition home or self-care (01) ==
PROVIDERS: Emergency Provider Emergency Medicine; PCP Family Medicine
DX: R10.84 Generalized abdominal pain (principal); R11.2 Nausea with vomiting, unspecified; I10 Essential (primary) hypertension; J45.909 Unspecified asthma, uncomplicated; Z79.51 Long term (current) use of inhaled steroids; Z79.899 Other long term (current) drug therapy; Z95.1 Presence of aortocoronary bypass graft; Z87.891 Personal history of nicotine dependence
CPT/HCPCS: 36415; 71046; 74177; 76705; 80053; 81001; 82150; 83605; 83690; 84145; 84484; 85007; 85025; 85651; 86140; 87040; 93005; 96361; 96374; 96375; 99285; J2405; Q9967

== ENCOUNTER → 2021-12-22 09:05 | Outpatient (CLI) | payer MEDICARE, OTHER, SELFPAY ==
[2021-12-22 09:47] LABS: Basophils # 0.1 K/mm3 (0-0.2); Basophils % 2.5 % (0.1-2.0); Eosinophils # 0.2 K/mm3 (0.0-0.4); Eosinophils % 2.7 % (0.1-12.0); Hematocrit 45.9 % (42.0-52.0); Hemoglobin 14.2 g/dL (14.1-18.0); Lymphocytes # 1.5 K/mm3 (0.7-4.5); Lymphocytes % 26.3 % (10-50); Mean Corpuscular HGB Conc 30.9 g/dL (31.8-35.4); Mean Corpuscular Hemoglobin 30.2 pg (27.0-31.2); Mean Corpuscular Volume 97.7 fl (80-94); Mean Platelet Volume 8.9 fl (7.4-10.4); Monocytes # 0.4 K/mm3 (0.1-1.0); Monocytes % 6.2 % (1.7-9.3); Neutrophils # 3.5 K/mm3 (1.8-7.8); Neutrophils % 62.3 % (37.0-80.0); Platelet Count 308 K/mm3 (142-424); Red Cell Distribution Width 14.9 % (11.5-17.5); White Blood Count 5.6 K/mm3 (4.8-10.8)
[2021-12-22 10:16] LABS: Chloride 111 mmol/L (98-107); Sodium 141 mmol/L (136-145)
[2021-12-22 10:17] LABS: Potassium 4.1 mmoL/L (3.5-5.1)
[2021-12-22 10:20] LABS: Anion Gap 10.1 mEq/L (5-15); Blood Urea Nitrogen 16 mg/dl (9-20); Calcium 9.1 mg/dl (8.4-10.2); Carbon Dioxide 24 mmol/L (22.0-30.0); Estimated Glomerular Filt Rate 60 ml/min (>60); GFR (African American) 73 ML/MIN (>60); Glucose 130 mg/dl (74-100)
== END ==
PROVIDERS: PCP Family Medicine; Visit Provider Surgery
DX: Z01.812 Encounter for preprocedural laboratory examination (principal); Z79.899 Other long term (current) drug therapy; Z20.822 Contact with and (suspected) exposure to COVID-19; K82.8 Other specified diseases of gallbladder
CPT/HCPCS: 36415; 80048; 85025; C9803; U0003; U0005

== ENCOUNTER 2021-12-25 11:22 | Day surgery (SDC) | payer MEDICARE, OTHER, SELFPAY ==
[2021-12-20 14:22] VITALS: BMI 37.0
[2021-12-25] VITALS (10 sets, daily range): BP systolic 126–152; BP diastolic 68–88; PULSE 69–82; RESP 16–18; TEMP 36.3–43; O2SAT 93–100
--- NOTE | 2021-12-25 14:34 | P.PN_ITS ---
[facility] Anesthesia Checklist - Patient Identification Patient Identification: Arm Band - Structural Data Admitted From: Home Planned Operative Procedure/s: Laparoscopic Cholecystectomy Consent for Planned Operative Procedure(s) Verified: Yes Verified Documents: Surgical Consent, History and Physical - NPO Status Verified Time NPO: 00:00 - Additional verifications Anesthesia Reactions: Yes (N/V) Hx Blood Transfusions: No Blood Transfusion Reaction: No - Airway Assessment C-Spine Mobility Assessed: Yes (mp2) TMJ Mobility Assessed: Yes Dentition: Good Dentition - Neurological Assessment Level of Consciousness: Awake, Alert - Anesthesia Plan Anesthesia Risk discussed: Yes Anesthesia Plan: Verified ASA Class: III Anesthesia Type: General [facility] History I have reviewed the patient's past medical history: Yes Medical History: Reports:: Asthma, Coronary Artery Disease, Hypertension Denies:: Cancer, Diabetes Mellitus Type 1, Diabetes Mellitus Type 2, Internal Pacemaker, MRSA, Seizures *Have you ever received a pneumonia vaccine?: No *Have you received a flu vaccine this season?: Yes Other Medical History: Denies: Blood Transfusion Reaction Anesthesia experience/problems:: nac Laterality Cases: Bilateral: Tonsillectomy Other Surgeries: Yes: CABG, Colonoscopy, Hernia Repair. No: Pacemaker Amputation: No Fractures: No - *Social History Last grade of school completed: High school graduate Smoking Status: Former smoker #Yrs smoked (if former smoker): 8 Smoking End Date: QUIT 40 YEARS AGO Alcohol Intake: never Substance Use Type: denies use *Occupational Status:: retired, other Housing: house Household Members: spouse *Travel in the last 8 weeks: None Family Hx:: No significant family history
[2021-12-25 16:30] LABS: Alanine Aminotransferase 38 U/L (12-78); Aspartate Amino Transferase 47 U/L (17-59); Bilirubin,Direct 0.1 mg/dl (0.0-0.4); Bilirubin,Indirect 0.4 mg/dL (0.0-0.9); Bilirubin,Total 0.5 mg/dl (0.2-1.3); Bilirubin,Unconjugated 0.3 mg/dL (0.0-1.1)
--- NOTE | 2021-12-25 16:30 | HMH.OPNOTE ---
Date of procedure: 12/25/21 Pre-op Diagnosis:: Gallbladder disease Post-op Diagnosis:: Same Procedure performed:: Laparoscopic cholecystectomy Surgeon:: Lit Foster MD TOP DYEING MACHINE LOADER:: Arnie Hernandez Anesthesia: GETRyan Estimated blood loss (mL): 40 Clinical Note:: Patient is a pleasant 71-year-old male referred by Dr. Strange for gallbladder. Patient states that on 12/06/2021 he had awoken with abdominal pain. This was mostly in the mid upper abdomen. This had transiently resolved and then the following day he had recurrent pain occur approximately 1 AM. He describes this as under his ribs and in the epigastrium. He presented to the emergency department where he underwent CT scan of the abdomen pelvis which revealed findings consistent with cholecystitis. He had an ultrasound performed which revealed findings of gallbladder polyps versus tumefactive sludge. Patient states that the pain has eased somewhat but it is still present. He has been watching his diet. When patient was seen in the office the options were discussed with him. He wished to pursue cholecystectomy. Operative findings:: Patient had a significantly inflamed gallbladder with evidence of acute on chronic cholecystitis with marked gallbladder wall thickening and significant fibrosis around the gallbladder. It was obscured by omental adhesions with a thick peel. There was very marked acute and chronic inflammation in the shawnee hepatis. Gallbladder was filled with very thick bile. There was some reactive fluid around the liver. He did have somewhat of a fatty liver and appreciable amount of visceral fat. There was noted to be previous umbilical hernia repair from Ventralex mesh placement at the umbilicus. Operative note:: Patient was taken to the operating room. He was given preoperative intravenous antibiotics. In the operating room he was placed in a supine position. General anesthesia was induced via endotracheal tube. Abdomen was prepped and draped in the standard surgical fashion. Subumbilical incision was made and while performing abdominal wall lift Veress needle was inserted. CO2 pneumoperitoneum was achieved to 15 mmHg. 11 mm optical trocar was inserted at the umbilicus. Intraperitoneal contents were visualized. He was positioned in reverse Trendelenburg left side down. He had a couple of 5 mm trochars inserted in the right upper abdomen and 10 mm trocar inserted in the epigastrium. He had appreciable amount of intra-abdominal visceral fat. The gallbladder was identified but it was virtually completely obscured with omental adhesions. There was some reactive fluid around the gallbladder and liver and this was suctioned free. Adhesions were taken down bluntly. Gallbladder was noted to be rather thickened and tense and firm. Ultimately the gallbladder was decompressed with the laparoscopic needle aspirator. Very thick bile was suctioned free from the gallbladder. Gallbladder was then grasped retracted anteriorly and superiorly over the dome of the liver. 0 degree laparoscope was replaced with angled laparoscope to attempt visualization of the gallbladder fossa after inflammatory adhesions were taken down from the gallbladder. He did require an additional 5 mm trocar site for placement of a fan retractor. There was intense acute and chronic inflammation around the neck of the gallbladder and shawnee hepatis. Very prolonged dissection was carried out. For some time it was difficult to discern the anatomy and isolated the cystic structures. However ultimately with some difficulty the cystic duct and apparent cystic artery were identified. Please note that the gallbladder was rather friable and there was some unavoidable spillage of thick bile from the gallbladder which was suctioned free. Cystic duct was multiply clipped and sharply divided. Cystic artery was carefully coagulated with GABRIELLE ultrasonic robotic erica and divided. Gallbladder was dissected free from t
[2021-12-25 16:31] LABS: Albumin Level 3.5 g/dl (3.5-5.0); Alkaline Phosphatase 147 U/L (38-126); Total Protein,Serum 6.1 g/dl (6.3-8.2)
--- NOTE | 2021-12-25 16:35 | P.PN_ITS ---
[facility] Anesthesia Record Part I Intake, IV Amount: 1,400 Estimated blood loss (mL): 10 Urine output (mL): 0 Blood Pressure: 152/86 SaO2: 93 Pulse Rate: 82 Respiratory Rate: 16 Temperature: 99.5 F Patient is:: Drowsy, Stable Stable to PACU at:: 16:30
--- NOTE | 2021-12-26 08:03 | P.PN_ITS ---
[facility] Anesthesia Record Part II Discharge Time: 17:00 Destination: Surgical Day Care (OP Surgery) PACU nurse assessment reviewed?: Yes Patient Condition:: Good Anesthesia Complications:: None Swallowing reflex intact?: Yes Cyanosis?: No Blood Pressure: 130/80 Pulse Rate: 72 Temperature: 98.4 F Mental Status: Alert & Oriented Pain level:: 4 Nausea and/or vomitting:: None Intake, IV Amount: 0
[2021-12-26 08:04] VITALS: BP 130/80; PULSE 72; TEMP 36.9
== END 2021-12-25 17:55 | disposition home or self-care (01) ==
LOC: OR 11:23
PROVIDERS: PCP Family Medicine; Visit Provider Surgery
PROC: 0FT44ZZ Resection of Gallbladder, Percutaneous Endoscopic Approach (ICD-10-PCS; CPT 47562; principal; 2021-12-25 13:00)
DX: K80.12 Calculus of gallbladder with acute and chronic cholecystitis without obstruction (principal); I10 Essential (primary) hypertension; I25.10 Atherosclerotic heart disease of native coronary artery without angina pectoris; J45.909 Unspecified asthma, uncomplicated; Z79.899 Other long term (current) drug therapy
CPT/HCPCS: 47562; 80076; 88304; 96374; J2405; J2710

== ENCOUNTER 2022-01-27 10:23 | Emergency (ER) | payer MEDICARE, OTHER, SELFPAY ==
[2022-01-27 10:24] VITALS: BP 119/77; PULSE 64; RESP 16; TEMP 37; O2SAT 98; BMI 36.9
--- NOTE | 2022-01-27 10:41 | PC.NURSE ---
ED AT BEDSIDE FOR EVALUATION
[2022-01-27 10:45] VITALS: BP 138/85; PULSE 66; O2SAT 95
--- NOTE | 2022-01-27 10:46 | PC.NURSE ---
pt still in rad
[2022-01-27 10:48] VITALS: BP 138/85; PULSE 65; O2SAT 95
[2022-01-27 11:01] VITALS: BP 125/83; PULSE 74; O2SAT 95
--- NOTE | 2022-01-27 11:01 | HMH.EDGENADL ---
ED Disposition Clinical Impression: Abrasion Disposition: Home, Self-Care Condition on Discharge: Good Instructions: DI for Laceration Repair Additional Instructions: Follow-up with your primary care physician tomorrow for scrotal bleeding seen in the emergency department. Hold pressure on the area if bleeding resumes, if you are not able to stop bleeding return to the emergency department. Referrals: Sanket Strange MD [Primary Care Provider] - - Critical Care Critical Care Time: No Attestation: On 01/27/22, the high probability of a clinically significant, sudden or life threatening deterioration of the following system(s) required my full and direct attention, intervention and personal management. The time I documented below is in addition to time spent performing reported procedures but includes the following listed in this critical care notation. Medical Decision Making - Travis Inquiry Pt receiving controlled substance: No Vital Signs: 01/27/22 10:24 01/27/22 10:45 Temperature 98.6 F Temperature Source Oral Pulse Rate 66 Pulse Rate [Radial] 64 Respiratory Rate 16 Blood Pressure 138/85 Blood Pressure [Right Arm] 119/77 Blood Pressure Mean [Right Arm] 91 Blood Pressure Source [Right Arm] Manual Cuff/ Palpation Blood Pressure Position [Right Arm] Sitting 02 Sat by Pulse Oximetry 98 95 Oxygen Delivery Method Room Air Medical Decision Narrative: 71-year-old male presents emergency department with scrotal bleeding today with patient on aspirin. 1 mm crusted lesion identified on the right hemiscrotum, without bleeding. Patient is hemodynamically stable and well-appearing without any other abnormality in the genital region. Bleeding has abated and patient was able to be discharged from the emergency department with instructions to follow-up with his primary care physician. Patient given return precautions as well. General Adult HPI - General Chief complaint: Wound/Laceration Stated complaint: laceration Time Seen by Provider: 01/27/22 10:45 Mode of Arrival: Ambulatory Limitations: No Limitations Description of Symptoms (Recalled from ER Triage Doc. by RN): to ed per pvt car with c/o bleeding from scrotum. states he was taking a shower and after noticed blood on the towel and in the bathtub. pt unsure of site of bleeding. denies any injury or pain - History of Present Illness HPI narrative: 71-year-old male presents emergency department complaining of scrotal bleeding that he noticed in the shower. Patient denies any known trauma to the area and takes 81 mg aspirin daily. Patient denies chest pain shortness of breath dysuria or other constitutional symptoms and has past medical history of hypertension and asthma with surgical history of CABG and cholecystectomy. Patient denies allergies to medications, patient denies smoking, drinking, recreational drug use. - Related Data Home Medications Medication Instructions Recorded Confirmed atorvastatin 80 mg tablet 80 mg PO DAILY tab 12/21/20 01/15/22 azelastine 137 mcg (0.1 %) nasal 1 ml NS DAILY 12/21/20 01/15/22 spray aerosol celecoxib 100 mg capsule 100 mg PO DAILY PRN cap 12/21/20 01/15/22 fluticasone furoate 100 1 dose IH DAILY 12/21/20 01/15/22 mcg/actuation blister powder for inhalation losartan 100 mg tablet 50 mg PO DAILY tab 12/21/20 01/15/22 metoprolol succinate 25 mg 25 mg PO DAILY tab 12/21/20 01/15/22 tablet,extended release 24 hr montelukast 10 mg tablet 10 mg PO DAILY tab 12/21/20 01/15/22 spironolactone 25 mg tablet 12.5 mg PO DAILY tab 12/21/20 01/15/22 meclizine 25 mg tablet 25 mg PO DAILY PRN tab 02/15/21 01/15/22 Aspirin [Low Dose Aspirin EC] 81 mg PO DAILY 12/20/21 01/15/22 Biotin 1,000 mcg PO DAILY 12/20/21 01/15/22 Fluticasone Propionate [Flonase 1 spr NS DAILY 12/20/21 01/15/22 50mcg nasal spray 16gm] Melatonin 10 mg PO HS 12/20/21 01/15/22 Mv-Mins/Folic/Lycopene/Ginkgo [One 1 each PO DAILY 0
[2022-01-27 11:15] VITALS: PULSE 78; O2SAT 96
[2022-01-27 12:00] VITALS: BP 123/74; PULSE 74; RESP 16; TEMP 36.6; O2SAT 98
== END 2022-01-27 12:00 | disposition home or self-care (01) ==
PROVIDERS: Emergency Provider Student in an Organized Health Care Education/Training Program; PCP Family Medicine
DX: N50.1 Vascular disorders of male genital organs (principal); Z79.82 Long term (current) use of aspirin; Z87.891 Personal history of nicotine dependence
CPT/HCPCS: 99282

== ENCOUNTER 2023-06-24 10:09 | Outpatient (CLI) | payer MEDICARE, SELFPAY | END 2023-06-24 23:59 | LOC: LAB.DROPOF 06-25 10:09 | PROVIDERS: PCP Nurse Practitioner Family; Visit Provider Nurse Practitioner Family | DX: R05.9 Cough, unspecified (principal) | CPT/HCPCS: 87635 ==

== ENCOUNTER 2023-07-29 11:22 | Outpatient (CLI) | payer MEDICARE, SELFPAY ==
--- NOTE | 2023-07-29 11:26 | XR_ITS ---
FINAL REPORT CLINICAL HISTORY: Foot Pain, mostly on lateral side FINDINGS: RIGHT FOOT Three views demonstrate no acute fracture or dislocation. There are mild degenerative changes of the first metatarsophalangeal joint. There are small calcaneal spurs. No acute soft tissue abnormality is seen. IMPRESSION: No acute process. Reviewed, Interpreted and Dictated by Lit Collins III, MD Transcribed by Angella Holloway Authenticated and [facility]
--- NOTE | 2023-07-29 11:26 | XR_ITS ---
FINAL REPORT CLINICAL HISTORY: Left foot pain pain FINDINGS: LEFT FOOT Three views demonstrate no acute fracture or dislocation. There are mild degenerative changes of the first metatarsophalangeal joint. There is a small plantar calcaneal spur. No acute soft tissue abnormality is seen. IMPRESSION: No acute process. Reviewed, Interpreted and Dictated by Lit Collins III, MD Transcribed by Angella Holloway Authenticated and [facility]
== END 2023-07-29 23:59 ==
LOC: RAD 11:23
PROVIDERS: PCP Family Medicine; Visit Provider Podiatrist
DX: M79.671 Pain in right foot (principal); M79.672 Pain in left foot
CPT/HCPCS: 73630

== ENCOUNTER 2023-09-18 15:00 | Outpatient (RCR) | payer MEDICARE, SELFPAY ==
--- NOTE | 2023-08-19 16:12 | HMH.PTOPEV ---
PT Outpatient Evaluation Rehab PT Outpatient Evaluation Start: 08/19/23 14:56 Freq: Status: Active Protocol: Document 08/19/23 14:56 PDESEROUX (Rec: 08/19/23 16:12 [email or web address] [id number]) E-signed By Bryce Block, PT Outpatient Therapy Subjective History Subjective History Pt. is a 72 year old male who presents to [facility] in [place] for the initial evaluation this date(08/19/23) w/ c/o subacute and intermittent RLE lateral ft. P !, TTP, and weakness of insidious onset a little after Thanksgi. Pt. denies trauma as mechanism of initial onset of symptoms. Pt. reports symptoms were constant and sharp, however, states symptoms are mot intermittent and not as sharp . Pt. reports standing and twisting to the right, negotiating stairs, and ambulating inclines increase symptomatic P!. Pt. reports having symptom relief w/ CAM bt. walker and rest. Pt. denies having injections for current complaint, states recent radiograph being negative per pt. report. Pt. reports being instructed by MD to don soft cast, and CAM bt. if he's on his feet prolonged or if there's P!. Pt. unable to recall medication names at this time, states bring in his list upon return. PMH includes S/P open heart surgery, Hyperlipidemia, Asthma, seasonal allergies. New diagnosis of cancer in past 12 No months? 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,Stiff,Gives out/Unstable, Weakness Symptom Type Ache,Sharp,Dull,Stabbing, Burning,Shooting Symptoms Relieved By Rest/Positioning,Ice,Brace/ Support,OTC Meds Symptoms Aggravated By Standing,Physical Activity, Twisting,Walking Prior Functional Limitations None Current Functional Limitations Standing,Recreation Activity, Walking,Stairs Symptom Description Intermittent,Activity Dependent Level of pain today (0-10) 0 Pain scale - at its best (0-10) 0 Pain scale - at its worst (0-10) 6 Ankle/Foot Eval Gait Observation General Gait Pattern Observation Antalgic Gait,Decrease Weight Bear (R),Decrease Stride Lngth (L) Assistive Device Ambulation Assistive Device None Palpation Tenderness right Ankle/Foot Palpation Findings Tenderness Ankle/Foot Palpation Overall Comment grade 4 +TTP to peroneal tendon insertion, base 5th MTS ATF TTP negative PTF TTP negative CF TTP negative Deltoid ligament TTP negative ROM Ankle/Foot Dorsiflexion w/Knee Extended +18 Active Range Motion (degrees) Ankle/Foot Dorsiflexion w/Knee Extended +3 Passive Range (degrees) Ankle/Foot Plantar Flexion Active Range 51 of Motion (degrees) Ankle/Foot Eversion Active Range of 6 Motion (degrees) Ankle/Foot Eversion Passive Range of 9 Motion (degrees) Ankle/Foot Inversion Active Range of 22 Motion (degrees) Ankle/Foot Inversion Passive Range of 25 Motion (degrees) Ankle/Foot ROM Limitations Soft Tissue Tightness,Muscle Weakness,Pain Accessory Movements Metatarsal Accessory Movements that base 5th MTS dorsal/plantar Elicit Symptoms glides MMT right Ankle Dorsiflexion Strength Grade 4 Good Ankle Plantarflexion Strength Grade 3 Fair Foot Eversion Strength Grade 3 Fair Foot Inversion Strength Grade 4 Good Ankle Dorsiflexors Muscle Tone Severe Hypertonicity Description Special Tests Ankle Anterior Drawer Test Negative Right Ankle Posterior Drawer Test Negative Right Foot/Heel Tap/Percussion Test Negative Right Neuro tests normal sensation to monofilament Yes Outpatient Therapy Assessment Impairments Problems/Impairmments Palpation Tenderness,Impaired Range of Motion,Impaired Strength,Impaired Endurance, Impaired Transfers,Impaired Gait Pattern,Impaired Walking, Impaired Standing,Impaired Stair Climbing,Impaired Incline Stepping,Impaired Stepping on Uneven Surface, Impaired Squatting,Impaired Recreational Activities, Subjective C/O Pain,Impaired Self Care/Self Management Prognosis Rehab Potential Good Comment w/ HEP compliancy Clinical Impression Consistent with Diagnosis Yes Consistent with RLE peroneal tendonitis Short Term Goals Number of Weeks 2 Decreased Palpation Tenderness Yes: grade 1-2 +TTP to TTP assessment above Decrease Subjective C/O Pain Yes: worse:10/30 Patient to be Ind w/ HEP Yes Ground Wirer Goals Number of Weeks 4-6 Decreased Palpation Tenderness Yes: grade 1 +TTP to TTP assessment above Increase Range of Motion Yes: RLE ankle/ft. A/PROM WFL grossly Increase Strength Yes: 4+ to 55 RLE ankle PF/EV Improve Transfers Yes: improved ability w/ sit to stand step to right transfer Improve Gait Pattern without Assistive Yes Device Increase Ability to Walk Yes Increase Ability to Stand Yes Improve Ability to Climb Stairs Yes Improve Incline Stepping Ability Yes Improve Ability to Step on Uneven Yes Surfaces Return to Recreational Activities Yes Improve LEFI Score Yes Decrease Subjective C/O Pain Yes: worse:-08/02 Improve Self Care/Self Management Yes Patient to be Ind w/ Advanced HEP Yes Outpatient Therapy Plan of Care Treatment Plan May Include Therapeutic Exercise Including Home Yes Exercise Program Manual Therapy Techniques Yes Neuromuscular Re-education Yes Therapeutic Activities to Return to Yes Previous Functional/Work Level Gait Training Yes ADL/Self Care Education Yes Dry Needling Yes Thermal Modalities Yes Electrical Stimulation Yes Ultrasound/Phonophoresis Yes Iontophoresis Yes Vasopneumatic Compression Pump Yes Massage Yes Eval/Re-Eval Yes Frequency Times per week 2 Duration Number of Weeks 4-6 Addendums This patient is a candidate for social No or vocational rehab? Patient/Guardian verbally acknowledges Yes understanding of treatment program and consents to further treatment? Patient/Guardian verbally acknowledges Yes understanding of diagnosis, prognosis and goals for treatment? Eval Complexity PT Charges 33598 - Low Complexity Shoulder/Elbow Eval Shoulder Objective Measurements Elbow Objective Measurements PHYSICIAN CERTIFICATION: I certify the specified therapy services for Matthew Quesada are required, authorized, and reviewed every 30 days.
== END 2023-09-30 15:38 | disposition home or self-care (01) ==
LOC: PT 15:00
PROVIDERS: Visit Provider Podiatrist
DX: M79.671 Pain in right foot (principal); M76.71 Peroneal tendinitis, right leg
CPT/HCPCS: 97010; 97014; 97035; 97110; 97112; 97163; 97530; G0283